=== PATIENT | male | born 1990 | race American Indian/Alaskan Native ===

== ENCOUNTER 2021-09-17 09:57 | Emergency (ER) | payer OTHER ==
[2021-09-17 10:20] VITALS: BP 130/80
[2021-09-17] MEDS ORDERED: IBUPROFEN 600 MG TAB PO ONE ×2 (12:26→15:00)
[2021-09-17] MEDS ORDERED: ACETAMINOPHEN 500 MG TAB PO ONE ×2 (12:26→15:00)
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
== END 2021-09-17 15:03 | disposition home or self-care (01) ==
LOC: ED 09:57
DX: S43.491A Other sprain of right shoulder joint, initial encounter (principal); S70.01XA Contusion of right hip, initial encounter; S70.11XA Contusion of right thigh, initial encounter; S20.211A Contusion of right front wall of thorax, initial encounter; E11.9 Type 2 diabetes mellitus without complications; Z79.899 Other long term (current) drug therapy; V89.2XXA Person injured in unspecified motor-vehicle accident, traffic, initial encounter; Y93.89 Activity, other specified; Y92.488 Other paved roadways as the place of occurrence of the external cause; Y99.8 Other external cause status
CPT/HCPCS: 71046; 99283